=== PATIENT | female | born 1995 | race Caucasian/White ===

== ENCOUNTER 2024-06-08 19:54 | Emergency (ER) | payer BC ==
[~2024-06-08] VITALS: Ht 170.2 cm; Wt 65.7 kg
[2024-06-08 20:04] VITALS: O2SAT 100
[2024-06-08 21:03] LABS: BASOPHILS % 0.3 % (0.0-2.0); HEMATOCRIT. 38.8 % (36.0-48.0); HEMOGLOBIN. 13.2 g/dL (12.0-16.0); LYMPHOCYTES % 10.6 % (20.0-50.0); MEAN CORPUSCULAR HEMOGLOBIN 30.7 pg (28.0-32.0); MEAN CORPUSCULAR VOLUME 90.2 fL (81.0-99.0); MEAN PLATELET VOLUME 7.4 fl (7.4-10.4); MONOCYTES % 6.1 % (2.0-8.0); PLATELET 271 x1000/uL (130-400); RED CELL DISTRIBUTION WIDTH 13.6 % (11.6-14.6); WHITE BLOOD COUNT 13.1 x1000/uL (4.5-11.0)
[2024-06-08 21:11] LABS: CHLORIDE 105 mEq/L (98-107); POTASSIUM 3.5 mEq/L (3.5-5.1); SODIUM 139 mEq/L (136-145)
[2024-06-08 21:12] LABS: CALCIUM 9.5 mg/dL (8.7-10.4); CARBON DIOXIDE 28 mEq/L (21-32)
[2024-06-08 21:17] LABS: CREATININE 0.7 mg/dL (0.6-1.0); GLUCOSE 115 mg/dL (70-105); UREA NITROGEN BLOOD 7 mg/dL (9-23)
[2024-06-08 21:19] LABS: ETHANOL BLOOD < 10 mg/dL (<10); TROPONIN I HIGH SENSITIVITY < 4 ng/L (3.0-34)
[2024-06-08 21:24] LABS: PROTHROMBIN TIME 10.7 sec (9.6-11.0)
[2024-06-08 21:27] LABS: HCG SCREEN NEGATIVE
[2024-06-08 22:52] VITALS: BP 96/60; PULSE 89; RESP 17; TEMP 98.3
== END 2024-06-08 22:57 | disposition home or self-care (01) ==
LOC: ER 19:54
DX: R56.9 Unspecified convulsions (principal)
CPT/HCPCS: 80048; 80320; 84703; 85025; 85610; 84484; 36415; 71045; 70450; 93005; 99284; Z7610; G0480